=== PATIENT | female | born 2005 | race Caucasian/White ===

== ENCOUNTER 2024-02-06 18:26 | Outpatient (CLI) | payer OTHER, SELFPAY | END 2024-02-06 18:27 | disposition home or self-care (01) | LOC: NFLDREF 02-11 06:58 | PROVIDERS: PCP Emergency Medicine; Referring Provider Emergency Medicine; Visit Provider Physician Assistant | DX: R10.11 Right upper quadrant pain (principal); R82.90 Unspecified abnormal findings in urine | CPT/HCPCS: 87086 ==

== ENCOUNTER 2024-02-14 15:17 | Outpatient (CLI) | payer OTHER, SELFPAY | END 2024-02-14 15:18 | disposition home or self-care (01) | PROVIDERS: PCP Emergency Medicine; Visit Provider Emergency Medicine | DX: Z00.00 Encounter for general adult medical examination without abnormal findings (principal); R41.89 Other symptoms and signs involving cognitive functions and awareness; K59.00 Constipation, unspecified; R10.9 Unspecified abdominal pain; F41.9 Anxiety disorder, unspecified | CPT/HCPCS: 84443; 86140 ==

== ENCOUNTER 2024-05-22 16:18 | Outpatient (CLI) | payer OTHER, SELFPAY | END 2024-05-22 16:19 | disposition home or self-care (01) | LOC: LKVREF 16:20 | PROVIDERS: PCP Emergency Medicine; Visit Provider Emergency Medicine | DX: N13.30 Unspecified hydronephrosis (principal) | CPT/HCPCS: 80048 ==